=== PATIENT | male | born 1995 | race African-American/Black ===

== ENCOUNTER 2019-12-10 10:33 | Emergency (ER) | payer OTHER ==
[~2019-12-10] VITALS: Ht 182.9 cm; Wt 95.3 kg
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
--- NOTE | 2019-12-10 11:20 | NUR ---
SEEN AND EXAMINED BY .
[2019-12-10] MEDS ORDERED: MORPHINE SULFATE INJ 2 MG/ML DISP.SYRIN IV ONE ×3 (11:30→17:00)
[2019-12-10] MEDS ORDERED: ONDANSETRON HCL/PF 4 MG/2 ML VIAL ONE (11:30)
[2019-12-10] MEDS ORDERED: ONDANSETRON HCL/PF - ER 4 MG/2 ML VIAL IV ONE (11:30)
[2019-12-10] MEDS ORDERED: IBUPROFEN 600 MG TABLET PO ONE (11:30)
[2019-12-10] MEDS ORDERED: MORPHINE SULFATE INJ 4 MG/ML DISP.SYRIN ONE ×3 (11:30→16:26)
--- NOTE | 2019-12-10 11:45 | NUR ---
[employer] AT BEDSIDE.
--- NOTE | 2019-12-10 11:55 | NUR ---
[facility] AT BEDSIDE FOR XRAY.
--- NOTE | 2019-12-10 12:51 | NUR ---
PT COMPLAINED DAYDAY PAIN STARTING TO COME BACK AGAIN. 03/20. MD MADE AWARE, VERBAL ORDER TO GIVEN MORPHINE 4MG IV X 1. NOTED AND CARRIED OUT
--- NOTE | 2019-12-10 13:08 | NUR ---
CALLED [facility] FOR CONSULT.
[2019-12-10] MEDS ORDERED: HYDROCODONE/APAP 10/325MG 1 EA TABLET ONE (14:54)
[2019-12-10] MEDS ORDERED: HYDROCODONE/APAP 10/325MG 1 EA TABLET PO ONE (15:00)
[2019-12-10 17:10] VITALS: BP 122/81
--- NOTE | 2019-12-10 17:10 | NUR ---
IV removed. Catheter intact and site benign. Pressure and 4x4 applied to site. No bleeding noted. Patient discharged to home in stable condition. Written and verbal after care instructions given. Patient verbalizes understanding of instruction.
== END 2019-12-10 17:13 | disposition home or self-care (01) ==
LOC: ER 10:35
DX: S42.492A Other displaced fracture of lower end of left humerus, initial encounter for closed fracture (principal); Y08.89XA Assault by other specified means, initial encounter; Y93.89 Activity, other specified; Y92.89 Other specified places as the place of occurrence of the external cause; Y99.0 Civilian activity done for income or pay
CPT/HCPCS: 73020; 73060; 73070; 96374; 96375; 96376; 99285; J2270 ×3; J2405